=== PATIENT | male | born 2005 | race Caucasian/White ===

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

== ENCOUNTER → 2023-01-18 16:32 | Emergency (ER) | payer OTHER | END | disposition left against medical advice (07) | LOC: ER 16:32 | DX: Z53.21 Procedure and treatment not carried out due to patient leaving prior to being seen by health care provider (principal) ==

== ENCOUNTER 2023-06-21 18:06 | Emergency (ER) | payer OTHER ==
[~2023-06-21] VITALS: Ht 162.6 cm; Wt 71.7 kg
[2023-06-21] MEDS ORDERED: BENZ-13 PO (20:18)
[2023-06-21] MEDS ORDERED: AZIT250T PO (20:18)
[2023-06-21 20:50] VITALS: BP 115/72; O2SAT 99
== END 2023-06-21 20:50 | disposition home or self-care (01) ==
LOC: ER 18:08
DX: J40 Bronchitis, not specified as acute or chronic (principal); Z79.899 Other long term (current) drug therapy; Z20.822 Contact with and (suspected) exposure to COVID-19
CPT/HCPCS: 71045; A4606; A4663